=== PATIENT | female | born 1975 | race Caucasian/White ===

== ENCOUNTER 2022-02-04 20:47 | Emergency (ER) | payer OTHER ==
[~2022-02-04] VITALS: Ht 167.6 cm; Wt 45.4 kg
[~2022-02-04 20:47] MED LIST: ADAL40PEN; CEPH500 PO; CYCL10 PO; GABA100 PO; GUAI100SY; HYDSUL200 PO; IBUP200; IBUP800 PO; Keflex500 MG PO; LEFL20 PO; MAGOXI400 PO; METTREX2.5 PO; NEOPOLHCSU OT; Naprosyn500 MG PO; PROCODE120 PO; RXPROCODSY PO; RXSULTRIDS PO; SULF500A PO; SULTRIDS PO
== END 2022-02-04 22:06 | disposition home or self-care (01) ==
LOC: ER 20:47
DX: R22.2 Localized swelling, mass and lump, trunk (principal); M06.9 Rheumatoid arthritis, unspecified; Z79.899 Other long term (current) drug therapy; F17.200 Nicotine dependence, unspecified, uncomplicated
CPT/HCPCS: 99282